=== PATIENT | female | born 1995 ===

== ENCOUNTER 2017-07-28 17:12 | Emergency (ER) | payer OTHER ==
[~2017-07-28] VITALS: Ht 165.1 cm; Wt 45.4 kg
--- NOTE | 2017-07-28 17:27 | ER Report ---
History and Physical Time Seen By MD: 17:25 Allergies: Coded Allergies: No Known Drug Allergies (Unverified , 07/28/17) Home Meds No Active Prescriptions or Reported Meds Constitutional Vital Sign - Last 24 Hours 07/28/17 17:25 Temp 98.6 Pulse 71 Resp 16 B/P (MAP) 110/77 Pulse Ox 98 O2 Delivery Room Air Depart Departure Latest Vital Signs Vital Signs Date Time Temp Pulse Resp B/P (MAP) Pulse Ox O2 Delivery O2 Flow Rate FiO2 07/28/17 17:25 98.6 71 16 110/77 98 Room Air New Scripts No Active Prescriptions or Reported Meds NATASHA MOON MD Jul 28, 2017 17:27
--- NOTE | 2017-07-28 17:55 | ER Report ---
History and Physical Time Seen By MD: 17:54 Hx. of Stated Complaint: pt reports R wrist pain from fall while snowboarding HPI/ROS CHIEF COMPLAINT: Right wrist pain HISTORY OF PRESENT ILLNESS: 22-year-old female patient presents to emergency room with complaint of right wrist pain. Patient states that she was snowboarding this afternoon and felt backwards. She states that she put her hand out to catch herself. She states that she did develop significant amounts of pain in the wrist that time. She states that they did place her in a sling and referred to come here to the emergency room. Patient denies any numbness tingling to the hand. She states that her pain is a 9 out of 10. States that she is unable to move her fingers at all due to the pain. Patient denies any previous injury to the wrist. REVIEW OF SYSTEMS: Respiratory: No cough, no dyspnea. Cardiovascular: No chest pain, no palpitations. Gastrointestinal: No vomiting, no abdominal pain. Musculoskeletal: As noted above Allergies: Coded Allergies: No Known Drug Allergies (Unverified , 07/28/17) Home Meds Active Scripts Hydrocodone Bit/Acetaminophen (HYDROCODON-ACETAMINOPHEN 5-325) 1 Each Tablet, 1 EACH PO Q4-6H Y for PAIN, #12 TAB Prov:POLLY WESTON 07/28/17 Past Medical/Surgical History Patient denies any pertinent medical or surgical history. Reviewed Nurses Notes: Yes Constitutional Vital Sign - Last 24 Hours 07/28/17 07/28/17 07/28/17 07/28/17 17:25 18:22 18:27 18:30 Temp 98.6 Pulse 71 95 95 Resp 16 B/P (MAP) 110/77 108/69 (82) 109/63 (78) Pulse Ox 98 96 94 O2 Delivery Room Air 07/28/17 07/28/17 07/28/17 07/28/17 18:32 18:37 18:42 18:47 Pulse 96 81 81 82 Pulse Ox 94 96 93 97 07/28/17 07/28/17 07/28/17 07/28/17 18:52 18:57 19:00 19:11 Pulse 87 89 B/P (MAP) 97/60 (72) 107/67 (80) Pulse Ox 97 95 07/28/17 19:17 Pulse 85 Resp 16 B/P (MAP) 115/72 (86) Pulse Ox 95 O2 Delivery Room Air Intake and Output 07/28/17 07/28/17 07/29/17 15:01 23:01 07:01 Intake Total 350 ml Balance 350 ml Physical Exam General Appearance: The patient is alert, has no immediate need for airway protection and no current signs of toxicity. Respiratory: Chest is non tender, lungs are clear to auscultation. Cardiac: regular rate and rhythm Musculoskeletal: Neck: Neck is supple and non tender. Extremities have full range of motion and are non tender. Patient has obvious deformity to the right wrist, no numbness tingling noted in the fingers. Patient was able to move her fingers but did have significant pain with movement. There is no break in the skin. Skin: No rashes or lesions. DIFFERENTIAL DIAGNOSIS: After history and physical exam differential diagnosis was considered for wrist sprain, wrist contusion, wrist fracture. Medical Decision Making EKG/Imaging Imaging INDICATION: fall with pain. Fall. Pain. DATE: 07/28/2017 6:45 PM. TECHNIQUE: WRIST RIGHT MIN 3 VIEW COMPARISON: None FINDINGS: Distal radius fracture extends transversely with extension to the articular surface on the dorsal side. The radial articular surface is tilted dorsally. There is also a mildly displaced ulnar styloid fracture. IMPRESSION: Distal radius fracture as above. Ulnar styloid fracture. Report Dictated By: Kirill Patel MD at 07/28/2017 6:45 PM Report E-Signed By: Kirill Patel MD at 07/28/2017 6:48 PM ED Course/Re-evaluation ED Course Patient was admitted to an exam room, history and physical were obtained. Differential diagnoses were considered. On examination patient has obvious deformity of the right wrist. Patient does have good sensation and good capillary refill to the fingers of the right hand. An x-ray was done of the right wrist, which shows a displaced fracture. It does go into the articular space. With the number of pieces of a fracture of the wrist I do not believe that I will be able to reduce it successfully and have it remain reduced. I discussed this with the patient. We did place her in a sugar tong splint. We will discharge her home with a limited supply of pain medication and a prescription. I did show the x-rays to the patient. I do want her to follow-up with orthopedics. I suspect she will have to have surgery for proper healing. The patient verbalized understanding and agreement. Procedure: Splint placement. A sugar tong splint was applied. After application of the splint I returned and re-examined the patient. The splint was adequately immobilizing the joint and distal to the splint the patient's circulation and sensation was intact. Decision to Disposition Date: Jul 28, 2017 Decision to Disposition Time: 19:12 Depart Departure Latest Vital Signs Vital Signs Date Time Temp Pulse Resp B/P (MAP) Pulse Ox O2 Delivery O2 Flow Rate FiO2 07/28/17 19:17 85 16 115/72 (86) 95 Room Air 07/28/17 17:25 98.6 Impression: Primary Impression: Distal radius fracture, right Additional Impression: Fracture of ulnar styloid Condition: Improved Disposition: HOME OR SELF-CARE New Scripts Hydrocodone Bit/Acetaminophen (HYDROCODON-ACETAMINOPHEN 5-325) 1 Each Tablet 1 EACH PO Q4-6H Y for PAIN, #12 TAB Prov: POLLY WESTON 07/28/17 Patient Instructions: Wrist Fracture in Adults (ED) Additional Instructions: Limit activity by pain. Ice the wrist through the splint; 2-3 times a day for 20-30 minutes. If the splint is feeling too tight you may loosen the janell wrap and rewrap it. Follow up with orthopedics in [place], call tomorrow to make an appointment. Keep the splint dry, wrap it with a bag and tape to keep the water out. Return to the ER with uncontrollable pain or numbness to the hand. You may take Ibuprofen as needed for pain in addition to the pain medication. Don't take any additional Tylenol while on the pain medication. Problem Qualifiers Primary Impression: Distal radius fracture, right Encounter type: initial encounter Fracture type: closed Fracture morphology : other intra-articular Qualified Codes: S52.571A - Other intraarticular fracture of lower end of right radius, initial encounter for closed fracture Additional Impression: Fracture of ulnar styloid Encounter type: initial encounter Fracture type: closed Fracture alignment : displaced Laterality: right Qualified Codes: S52.611A - Displaced fracture of right ulna styloid process, initial encounter for closed fracture POLLY WESTON Jul 28, 2017 17:55
[2017-07-28] MEDS ORDERED: NS(*) 0.9% 1000 ML BAG 1,000 ML IV ONE (18:00)
[2017-07-28] MEDS ORDERED: MORPHINE 4 MG/ML SYR IVP ONE (18:00)
--- NOTE | 2017-07-28 18:53 | RADIOLOGY IMAGING REPORT ---
[place] [facility] [place] NAME: Nereida Coffey : 1995 MR: [id number] V: [id number] EXAM DATE: ORDERING PHYSICIAN: POLLY WESTON TECHNOLOGIST: Location: [facility] - [place] Patient: Nereida Coffey : 1995 Visit/Account:[id number] Date of Sevice: 07/28/2017 INDICATION: fall with pain. Fall. Pain. DATE: 07/28/2017 6:45 PM. TECHNIQUE: WRIST RIGHT MIN 3 VIEW COMPARISON: None FINDINGS: Distal radius fracture extends transversely with extension to the articular surface on the dorsal side. The radial articular surface is tilted dorsally. There is also a mildly displaced ulnar styloid fracture. IMPRESSION: Distal radius fracture as above. Ulnar styloid fracture. Report Dictated By: Kirill Patel MD at 07/28/2017 6:45 PM Report E-Signed By: Kirill Patel MD at 07/28/2017 6:48 PM WSN:[id number]
[2017-07-28] MEDS ORDERED: HYDR-385 PO (19:13)
[2017-07-28] MEDS ORDERED: ACET/HYDROC 5/325MG TH ER ONLY 2 TAB/BOTTLE PO ONE (19:15)
[2017-07-28 19:17] VITALS: BP 115/72
== END 2017-07-28 19:34 | disposition home or self-care (01) ==
LOC: ER 17:31
DX: S52.571A Other intraarticular fracture of lower end of right radius, initial encounter for closed fracture (principal); S52.611A Displaced fracture of right ulna styloid process, initial encounter for closed fracture; V00.311A Fall from snowboard, initial encounter; Y93.23 Activity, snow (alpine) (downhill) skiing, snowboarding, sledding, tobogganing and snow tubing
CPT/HCPCS: 29125; 73110; 96361; 96374; 99283; A4565; J2270; J7030